=== PATIENT | male | born 1975 | race Caucasian/White ===

== ENCOUNTER 2018-07-16 07:09 | Day surgery (SDC) | payer MEDICAID ==
[~2018-07-16] VITALS: Ht 190.5 cm; Wt 136.7 kg
[2018-07-16] VITALS (8 sets, daily range): BP systolic 97–118; BP diastolic 53–72
[~2018-07-16 07:09] MED LIST: LIDOcaine 1% 30ml preserv. free vial SQ STA
[2018-07-16] MEDS ORDERED: normal saline 1000ml 1,000 ML IV PRN (07:25)
[2018-07-16] MEDS ORDERED: albumin (human) 25% 100 ML IV solution IV PRN (07:25)
[2018-07-16] MEDS ORDERED: LIDOcaine 1% 30ml preserv. free vial SQ PRN (07:25)
[2018-07-16] MEDS ORDERED: FURO40TA4 PO (07:32)
[2018-07-16] MEDS ORDERED: LOSA25TA96 PO (07:32)
[2018-07-16] MEDS ORDERED: IBUP-1986 PO (07:32)
[2018-07-16] MEDS ORDERED: LORA10TA7 PO (07:32)
[2018-07-16] MEDS ORDERED: ALPR-624 PO (07:32)
[2018-07-16] MEDS ORDERED: DULO-31 PO (07:32)
[2018-07-16] MEDS ORDERED: SPIR100T PO (07:32)
[2018-07-16] MEDS ORDERED: ARIP10TA15 PO (07:32)
[2018-07-16] MEDS ORDERED: METO50TA17 PO (07:32)
[2018-07-16] MEDS ORDERED: ESCI10TA54 PO (07:32)
[2018-07-16] MEDS ORDERED: METF500T PO (07:32)
[2018-07-16] MEDS ORDERED: LIDOcaine 1% 30ml preserv. free vial SQ ONE (08:30)
== END 2018-07-16 09:51 | disposition home or self-care (01) ==
LOC: SSTAY O 07:09
PROVIDERS: ATTEND Radiology Diagnostic Radiology
DX: K70.31 Alcoholic cirrhosis of liver with ascites (principal); I10 Essential (primary) hypertension; E78.5 Hyperlipidemia, unspecified; E11.9 Type 2 diabetes mellitus without complications; F32.9 Major depressive disorder, single episode, unspecified; F41.8 Other specified anxiety disorders; F10.21 Alcohol dependence, in remission; Z85.048 Personal history of other malignant neoplasm of rectum, rectosigmoid junction, and anus; Z87.891 Personal history of nicotine dependence; Z79.1 Long term (current) use of non-steroidal anti-inflammatories (NSAID); Z79.84 Long term (current) use of oral hypoglycemic drugs; Z79.899 Other long term (current) drug therapy; Z98.890 Other specified postprocedural states
CPT/HCPCS: 49083; J3490; J7030; P9047

== ENCOUNTER 2019-09-30 08:28 | Day surgery (SDC) | payer MEDICAID ==
[~2019-09-30] VITALS: Ht 190.5 cm; Wt 151.2 kg
[2019-09-30] VITALS (8 sets, daily range): BP systolic 110–145; BP diastolic 62–83
[~2019-09-30 08:28] MED LIST changes: +ALPR-624 PO; +ARIP10TA15 PO; +DULO-31 PO; +ESCI10TA61 PO; +FURO40TA4 PO; +IBUP-1986 PO; -LIDOcaine 1% 30ml preserv. free vial SQ STA; +LORA10TA7 PO; +LOSA25TA96 PO; +METF500T PO; +METO50TA17 PO; +SPIR100T PO
[2019-09-30] MEDS ORDERED: normal saline 1000ml 1,000 ML IV PRN (09:00)
[2019-09-30] MEDS ORDERED: albumin 25% 100mL bottle x 1 IV PRN (09:00)
[2019-09-30 11:36] LABS: GLUCOSE,BODY FLUID 105 MG/DL; LDH,BODY FLUID 61 U/L
[2019-09-30 13:16] LABS: LYMPHOCYTES,BODY FLUID 65 %; MONOCYTES,BODY FLUID 33 %; NEUTROPHILS,BODY FLUID 2 %
[2019-09-30 13:17] LABS: BF MESOTHELIAL CELLS FEW; BF RBC COUNT 235 /CU MM; BF WBC COUNT 240 /CU MM (0-1000); BFAPPEAR HAZY; BFCOLOR YELLOW; BFVOLUME 60 ML
[2019-10-01 10:14] LABS: TOTAL PROTEIN,BODY FLUID < 2.0 G/DL
== END 2019-09-30 11:30 | disposition home or self-care (01) ==
LOC: SSTAY O 08:28
PROVIDERS: ATTEND Radiology Diagnostic Radiology
DX: R18.8 Other ascites (principal)
CPT/HCPCS: 49083; 82945; 83615; 84157; 87070; 89051; C1729; J7030; P9047

== ENCOUNTER 2019-12-22 06:17 | Day surgery (SDC) | payer MEDICAID ==
[~2019-12-22] VITALS: Ht 190.5 cm; Wt 159.4 kg
[2019-12-22] VITALS (8 sets, daily range): BP systolic 132–152; BP diastolic 56–96
[~2019-12-22 06:17] MED LIST changes: -IBUP-1986 PO; -LORA10TA7 PO; -METO50TA17 PO; -SPIR100T PO
[2019-12-22] MEDS: albumin 25% 100mL bottle x 1 IV PRN ×2 (08:48→09:41)
== END 2019-12-22 11:15 | disposition home or self-care (01) ==
LOC: SSTAY O 06:17 → MED 3N 06:24 → SSTAY O 11:15
PROVIDERS: ATTEND Radiology Diagnostic Radiology
DX: K70.31 Alcoholic cirrhosis of liver with ascites (principal); I10 Essential (primary) hypertension; E11.9 Type 2 diabetes mellitus without complications; F41.8 Other specified anxiety disorders; Z79.899 Other long term (current) drug therapy; Z98.890 Other specified postprocedural states
CPT/HCPCS: 49083; C1729; P9047

== ENCOUNTER 2020-03-15 08:09 | Day surgery (SDC) | payer MEDICAID ==
[2020-03-15] VITALS (10 sets, daily range): BP systolic 129–155; BP diastolic 68–101
[~2020-03-15] VITALS: Ht 190.5 cm; Wt 133.1 kg
[2020-03-15] MEDS ORDERED: normal saline 1000ml 1,000 ML IV PRN (08:35)
[2020-03-15] MEDS: albumin 25% 100mL bottle x 1 IV PRN ×3 (10:32→11:28)
== END 2020-03-15 12:35 | disposition home or self-care (01) ==
LOC: SSTAY O 08:09
PROVIDERS: ATTEND Radiology Vascular & Interventional Radiology
DX: K70.31 Alcoholic cirrhosis of liver with ascites (principal); I10 Essential (primary) hypertension; E11.9 Type 2 diabetes mellitus without complications; F41.9 Anxiety disorder, unspecified; F32.9 Major depressive disorder, single episode, unspecified; Z98.890 Other specified postprocedural states; Z79.899 Other long term (current) drug therapy
CPT/HCPCS: 49083; P9047

== ENCOUNTER 2020-04-08 07:36 | Day surgery (SDC) | payer MEDICAID ==
[2020-04-08] VITALS (10 sets, daily range): BP systolic 103–150; BP diastolic 57–87
[~2020-04-08] VITALS: Ht 190.5 cm; Wt 138.2 kg
[~2020-04-08 07:36] MED LIST changes: -METF500T PO
[2020-04-08] MEDS ORDERED: normal saline 1000ml 1,000 ML IV PRN (07:55)
[2020-04-08] MEDS: albumin 25% 100mL bottle x 1 IV PRN ×2 (09:43→10:03)
== END 2020-04-08 11:38 | disposition home or self-care (01) ==
LOC: SSTAY O 07:36
PROVIDERS: ATTEND Radiology Vascular & Interventional Radiology
DX: K70.31 Alcoholic cirrhosis of liver with ascites (principal); E11.9 Type 2 diabetes mellitus without complications; I10 Essential (primary) hypertension; F32.9 Major depressive disorder, single episode, unspecified; F41.9 Anxiety disorder, unspecified; Z79.899 Other long term (current) drug therapy; Z98.890 Other specified postprocedural states
CPT/HCPCS: 49083; P9047

== ENCOUNTER 2020-05-06 06:53 | Day surgery (SDC) | payer MEDICAID ==
[~2020-05-06] VITALS: Ht 190.5 cm; Wt 139.3 kg
[2020-05-06] VITALS (14 sets, daily range): BP systolic 137–174; BP diastolic 62–101
[2020-05-06] MEDS ORDERED: normal saline 1000ml 1,000 ML IV PRN (07:15)
[2020-05-06] MEDS: albumin 25% 100mL bottle x 1 IV PRN ×4 (08:36→11:48)
== END 2020-05-06 12:30 | disposition home or self-care (01) ==
LOC: SSTAY O 06:53
PROVIDERS: ATTEND Radiology Vascular & Interventional Radiology
DX: K70.31 Alcoholic cirrhosis of liver with ascites (principal); I10 Essential (primary) hypertension; E11.9 Type 2 diabetes mellitus without complications; F41.9 Anxiety disorder, unspecified; F32.9 Major depressive disorder, single episode, unspecified; Z98.890 Other specified postprocedural states; Z79.899 Other long term (current) drug therapy
CPT/HCPCS: 49083; P9047

== ENCOUNTER 2020-05-31 06:45 | Day surgery (SDC) | payer MEDICAID ==
[2020-05-31] VITALS (12 sets, daily range): BP systolic 94–180; BP diastolic 61–102
[~2020-05-31] VITALS: Ht 190.5 cm; Wt 136.1 kg
[2020-05-31] MEDS ORDERED: normal saline 1000ml 1,000 ML IV PRN (07:05)
[2020-05-31] MEDS ORDERED: SPIR100T5 PO (07:09)
[2020-05-31] MEDS ORDERED: DOXY150T3 PO (07:09)
[2020-05-31] MEDS ORDERED: PANT40TA54 PO (07:09)
[2020-05-31] MEDS: albumin 25% 100mL bottle x 1 IV PRN ×2 (08:37→09:28)
== END 2020-05-31 11:00 | disposition home or self-care (01) ==
LOC: SSTAY O 06:45
PROVIDERS: ATTEND Radiology Vascular & Interventional Radiology
DX: K70.31 Alcoholic cirrhosis of liver with ascites (principal); E11.9 Type 2 diabetes mellitus without complications; F32.9 Major depressive disorder, single episode, unspecified; F41.9 Anxiety disorder, unspecified; I10 Essential (primary) hypertension; Z98.890 Other specified postprocedural states; Z79.899 Other long term (current) drug therapy
CPT/HCPCS: 49083; P9047

== ENCOUNTER 2020-06-11 06:26 | Day surgery (SDC) | payer MEDICAID ==
[~2020-06-11] VITALS: Ht 190.5 cm; Wt 130.1 kg
[2020-06-11] VITALS (13 sets, daily range): BP systolic 128–174; BP diastolic 47–106
[~2020-06-11 06:26] MED LIST changes: +DOXY150T3 PO; -LOSA25TA96 PO; +PANT40TA54 PO; +SPIR100T5 PO
[2020-06-11] MEDS ORDERED: FLU VACC QS2020-21(6MOS UP)/PF 60 MCG/0.5 ML SYRINGE IMVAC ONE (07:30)
[2020-06-11] MEDS: albumin 25% 100mL bottle x 1 IV PRN ×3 (08:50→09:50)
== END 2020-06-11 11:25 | disposition home or self-care (01) ==
LOC: SSTAY O 06:26
PROVIDERS: ATTEND Radiology Vascular & Interventional Radiology
DX: R18.8 Other ascites (principal); K70.31 Alcoholic cirrhosis of liver with ascites; Z23 Encounter for immunization; I10 Essential (primary) hypertension; E11.9 Type 2 diabetes mellitus without complications; F32.9 Major depressive disorder, single episode, unspecified; F41.9 Anxiety disorder, unspecified; Z98.890 Other specified postprocedural states; Z79.899 Other long term (current) drug therapy
CPT/HCPCS: 49083; 90471; P9047; Q2039

== ENCOUNTER 2020-07-16 05:58 | Day surgery (SDC) | payer MEDICAID ==
[~2020-07-16] VITALS: Ht 190.5 cm; Wt 122.4 kg
[2020-07-16] VITALS (11 sets, daily range): BP systolic 107–133; BP diastolic 61–89
[~2020-07-16 05:58] MED LIST changes: -DOXY150T3 PO
[2020-07-16] MEDS: albumin 25% 100mL bottle x 1 IV PRN ×2 (09:35→10:05)
== END 2020-07-16 12:08 | disposition home or self-care (01) ==
LOC: SSTAY O 05:58
PROVIDERS: ATTEND Radiology Vascular & Interventional Radiology
DX: K70.31 Alcoholic cirrhosis of liver with ascites (principal); E11.9 Type 2 diabetes mellitus without complications; I10 Essential (primary) hypertension; F32.9 Major depressive disorder, single episode, unspecified; F41.9 Anxiety disorder, unspecified; Z98.890 Other specified postprocedural states; Z79.899 Other long term (current) drug therapy
CPT/HCPCS: 49083; P9047

== ENCOUNTER 2020-08-03 09:21 | Day surgery (SDC) | payer MEDICAID ==
[2020-08-03] VITALS (10 sets, daily range): BP systolic 134–184; BP diastolic 78–115
[~2020-08-03] VITALS: Ht 190.5 cm; Wt 127.1 kg
[2020-08-03] MEDS: albumin 25% 100mL bottle x 1 IV PRN ×3 (10:16→11:39)
== END 2020-08-03 13:28 | disposition home or self-care (01) ==
LOC: SSTAY O 09:21
PROVIDERS: ATTEND Radiology Vascular & Interventional Radiology
DX: K70.31 Alcoholic cirrhosis of liver with ascites (principal); I10 Essential (primary) hypertension; E11.9 Type 2 diabetes mellitus without complications; F32.9 Major depressive disorder, single episode, unspecified; F41.9 Anxiety disorder, unspecified; F15.20 Other stimulant dependence, uncomplicated; F90.0 Attention-deficit hyperactivity disorder, predominantly inattentive type; Z98.890 Other specified postprocedural states; Z79.899 Other long term (current) drug therapy
CPT/HCPCS: 49083; P9047

== ENCOUNTER 2020-08-19 07:27 | Day surgery (SDC) | payer MEDICAID ==
[2020-08-19] VITALS (13 sets, daily range): BP systolic 117–157; BP diastolic 53–97
[~2020-08-19] VITALS: Ht 190.5 cm; Wt 132.4 kg
[2020-08-19] MEDS ORDERED: CEPH500C5 PO (08:17)
[2020-08-19] MEDS ORDERED: BACDS PO (08:17)
[2020-08-19] MEDS: albumin 25% 100mL bottle x 1 IV PRN ×3 (09:43→11:16)
== END 2020-08-19 12:00 | disposition home or self-care (01) ==
LOC: SSTAY O 07:27
PROVIDERS: ATTEND Radiology Diagnostic Radiology
DX: K70.31 Alcoholic cirrhosis of liver with ascites (principal); I10 Essential (primary) hypertension; E11.9 Type 2 diabetes mellitus without complications; F32.9 Major depressive disorder, single episode, unspecified; F41.9 Anxiety disorder, unspecified; Z98.890 Other specified postprocedural states; Z79.899 Other long term (current) drug therapy
CPT/HCPCS: 49083; P9047

== ENCOUNTER 2020-09-14 08:23 | Day surgery (SDC) | payer MEDICAID ==
[2020-09-14] VITALS (10 sets, daily range): BP systolic 117–185; BP diastolic 73–101
[~2020-09-14] VITALS: Ht 190.5 cm; Wt 130.5 kg
[~2020-09-14 08:23] MED LIST changes: +BACDS PO; +CEPH500C5 PO
[2020-09-14] MEDS ORDERED: ketorolac tromethamine 15mg/ml inj. IV ONE (09:10)
[2020-09-14] MEDS: albumin 25% 100mL bottle x 1 IV PRN ×3 (10:52→11:09)
== END 2020-09-14 12:47 | disposition home or self-care (01) ==
LOC: SSTAY O 08:23
PROVIDERS: ATTEND Radiology Diagnostic Radiology
DX: K70.31 Alcoholic cirrhosis of liver with ascites (principal); E11.9 Type 2 diabetes mellitus without complications; I10 Essential (primary) hypertension; F32.9 Major depressive disorder, single episode, unspecified; F41.9 Anxiety disorder, unspecified; Z87.19 Personal history of other diseases of the digestive system; Z98.890 Other specified postprocedural states; Z79.899 Other long term (current) drug therapy
CPT/HCPCS: 49083; J1885; P9047

== ENCOUNTER 2020-09-28 06:25 | Day surgery (SDC) | payer MEDICAID ==
[2020-09-28] VITALS (12 sets, daily range): BP systolic 132–167; BP diastolic 49–104
[~2020-09-28] VITALS: Ht 190.5 cm; Wt 141.6 kg
[~2020-09-28 06:25] MED LIST changes: -ESCI10TA61 PO; +ESCI10TA66 PO
[2020-09-28] MEDS ORDERED: ketorolac trometh. 30mg/ml inj. IV ONE (08:25)
[2020-09-28] MEDS: albumin 25% 100mL bottle x 1 IV PRN ×3 (08:37→10:23)
== END 2020-09-28 11:30 | disposition home or self-care (01) ==
LOC: SSTAY O 06:25
PROVIDERS: ATTEND Radiology Diagnostic Radiology
DX: K70.31 Alcoholic cirrhosis of liver with ascites (principal); E11.9 Type 2 diabetes mellitus without complications; I10 Essential (primary) hypertension; F32.9 Major depressive disorder, single episode, unspecified; F41.9 Anxiety disorder, unspecified; Z98.890 Other specified postprocedural states; Z79.899 Other long term (current) drug therapy
CPT/HCPCS: 49083; 76937; J1885; P9047

== ENCOUNTER 2020-10-08 08:22 | Day surgery (SDC) | payer MEDICAID ==
[~2020-10-08] VITALS: Ht 190.5 cm; Wt 135.9 kg
[2020-10-08] VITALS (18 sets, daily range): BP systolic 126–172; BP diastolic 68–109
[~2020-10-08 08:22] MED LIST changes: -BACDS PO; -CEPH500C5 PO
[2020-10-08] MEDS ORDERED: FERR325T32 PO (08:49)
[2020-10-08] MEDS: albumin 25% 100mL bottle x 1 IV PRN ×4 (09:23→12:05)
[2020-10-08 16:27] LABS: BASOPHILS % (AUTO) 0.8 % (0-1); EOSINOPHILS # (AUTO) 0.1 X10'3 (0-0.9); EOSINOPHILS % (AUTO) 2.5 % (0-6); LYMPHOCYTES # (AUTO) 0.6 X10'3 (1.1-4.8); LYMPHOCYTES % (AUTO) 14.3 % (21-51); MEAN CORPUSCULAR HGB CONC 31.3 g/dL (33.0-36.5); MEAN CORPUSCULAR VOLUME 76.6 FL (78-98); MEAN PLATELET VOLUME 7.2 FL (7.4-10.4); MONOCYTES # (AUTO) 0.7 X10'3 (0-0.9); MONOCYTES % (AUTO) 17.1 % (2-12); NEUTROPHILS # (AUTO) 2.7 X10'3 (1.8-7.7); NEUTROPHILS % (AUTO) 65.3 % (42-75); PLATELET COUNT 100 X10'3 (140-440); RED CELL DISTRIBUTION WIDTH 21.9 % (11.5-14.5); WHITE BLOOD COUNT 4.2 X10'3 (4.5-11.0)
[2020-10-08 16:32] LABS: HEMATOCRIT 20.7 % (42.0-52.0); HEMOGLOBIN 6.5 g/dl (14.0-17.9)
[2020-10-08 16:39] LABS: ALANINE AMINOTRANSFERASE 16 U/L (12-78); ALBUMIN 2.8 G/DL (3.4-5.0); ALBUMIN/GLOBULIN RATIO 0.7 (1.1-1.5); ALKALINE PHOSPHATASE 108 IU/L (46-116); ANION GAP 6 (8-16); ASPARTATE AMINO TRANSFERASE 27 U/L (10-37); BLOOD UREA NITROGEN 10 MG/DL (7-18); CALCIUM 8.2 MG/DL (8.5-10.1); CHLORIDE 108 MMOL/L (99-107); CREATININE 0.77 MG/DL (0.60-1.10); GLUCOSE 113 MG/DL (70-104); POTASSIUM 3.9 MMOL/L (3.5-5.1); SODIUM 141 MMOL/L (135-145); TOTAL CARBON DIOXIDE 27.3 MMOL/L (24-32); TOTAL PROTEIN 6.7 G/DL (6.4-8.2); eGFR > 90 ML/MIN
[2020-10-08 16:53] LABS: PLATELET ESTIMATE DECREASED
[2020-10-08 16:55] LABS: ANISOCYTOSIS 3+; HYPOCHROMASIA 2+; MICROCYTOSIS 1+; POLYCHROMASIA 1+
[2020-10-08 16:59] LABS: SPHEROCYTES FEW
[2020-10-08 17:03] LABS: ELLIPTOCYTES 1+; TEAR DROP CELLS FEW
== END 2020-10-08 16:30 | disposition home or self-care (01) ==
LOC: SSTAY O 08:22
PROVIDERS: ATTEND Radiology Diagnostic Radiology
DX: K70.31 Alcoholic cirrhosis of liver with ascites (principal); I10 Essential (primary) hypertension; E11.9 Type 2 diabetes mellitus without complications; F32.9 Major depressive disorder, single episode, unspecified; F41.9 Anxiety disorder, unspecified; Z98.890 Other specified postprocedural states; Z79.899 Other long term (current) drug therapy
CPT/HCPCS: 36415; 49083; 80053; 82103; 85025; 85610; P9047; 85008

== ENCOUNTER 2020-10-28 07:10 | Day surgery (SDC) | payer MEDICAID ==
[2020-10-28] VITALS (16 sets, daily range): BP systolic 128–176; BP diastolic 72–104
[~2020-10-28] VITALS: Ht 190.5 cm; Wt 144.1 kg
[~2020-10-28 07:10] MED LIST changes: +FERR325T32 PO
[2020-10-28] MEDS ORDERED: CITA20TA19 PO (08:02)
[2020-10-28] MEDS ORDERED: MELA5TAB12 PO (08:02)
[2020-10-28] MEDS ORDERED: MILK175C5 PO (08:02)
[2020-10-28] MEDS ORDERED: CARV3.12 PO (08:02)
[2020-10-28] MEDS ORDERED: DOCU-148 PO (08:02)
[2020-10-28] MEDS ORDERED: METF500T PO (08:02)
[2020-10-28] MEDS ORDERED: ketorolac trometh. 30mg/ml inj. IV ONE (09:05)
[2020-10-28] MEDS: albumin 25% 100mL bottle x 1 IV PRN ×5 (09:14→11:03)
== END 2020-10-28 13:35 | disposition home or self-care (01) ==
LOC: SSTAY O 07:10
PROVIDERS: ATTEND Radiology Diagnostic Radiology
DX: K70.31 Alcoholic cirrhosis of liver with ascites (principal); I10 Essential (primary) hypertension; E11.9 Type 2 diabetes mellitus without complications; F41.9 Anxiety disorder, unspecified; F32.9 Major depressive disorder, single episode, unspecified; G47.419 Narcolepsy without cataplexy; D64.9 Anemia, unspecified; Z87.19 Personal history of other diseases of the digestive system; Z98.890 Other specified postprocedural states; Z79.899 Other long term (current) drug therapy
CPT/HCPCS: 49083; J1885; P9047

== ENCOUNTER 2020-11-12 08:35 | Day surgery (SDC) | payer MEDICAID ==
[2020-11-12] VITALS (13 sets, daily range): BP systolic 114–147; BP diastolic 62–88
[~2020-11-12] VITALS: Ht 190.5 cm; Wt 133.2 kg
[~2020-11-12 08:35] MED LIST changes: +CARV3.12 PO; +CITA20TA19 PO; +DOCU-148 PO; -DULO-31 PO; -ESCI10TA66 PO; +MELA5TAB12 PO; +METF500T PO; +MILK175C5 PO; -PANT40TA54 PO
[2020-11-12] MEDS ORDERED: AZIT500T PO (09:07)
[2020-11-12] MEDS: albumin 25% 100mL bottle x 1 IV PRN ×3 (09:38→11:40)
== END 2020-11-12 13:14 | disposition home or self-care (01) ==
LOC: SSTAY O 08:35
PROVIDERS: ATTEND Radiology Diagnostic Radiology
DX: K70.31 Alcoholic cirrhosis of liver with ascites (principal); I10 Essential (primary) hypertension; E11.9 Type 2 diabetes mellitus without complications; F32.9 Major depressive disorder, single episode, unspecified; F41.9 Anxiety disorder, unspecified; D64.9 Anemia, unspecified; G47.419 Narcolepsy without cataplexy; Z79.899 Other long term (current) drug therapy; Z87.19 Personal history of other diseases of the digestive system; Z98.890 Other specified postprocedural states
CPT/HCPCS: 49083; P9047

== ENCOUNTER 2020-11-19 07:01 | Day surgery (SDC) | payer MEDICAID ==
[~2020-11-19] VITALS: Ht 190.5 cm; Wt 127.9 kg
[2020-11-19] VITALS (17 sets, daily range): BP systolic 123–174; BP diastolic 79–109
[~2020-11-19 07:01] MED LIST changes: +AZIT500T PO
[2020-11-19] MEDS: albumin 25% 100mL bottle x 1 IV PRN ×4 (08:51→11:41)
== END 2020-11-19 12:50 | disposition home or self-care (01) ==
LOC: SSTAY O 07:01
PROVIDERS: ATTEND Radiology Vascular & Interventional Radiology
DX: K70.31 Alcoholic cirrhosis of liver with ascites (principal); I10 Essential (primary) hypertension; E11.9 Type 2 diabetes mellitus without complications; F32.9 Major depressive disorder, single episode, unspecified; F41.9 Anxiety disorder, unspecified; D64.9 Anemia, unspecified; G47.419 Narcolepsy without cataplexy; Z98.890 Other specified postprocedural states; Z79.899 Other long term (current) drug therapy; Z79.84 Long term (current) use of oral hypoglycemic drugs
CPT/HCPCS: 49083; P9047

== ENCOUNTER 2020-12-03 06:33 | Day surgery (SDC) | payer MEDICAID ==
[~2020-12-03] VITALS: Ht 190.5 cm; Wt 138.8 kg
[2020-12-03] VITALS (10 sets, daily range): BP systolic 125–146; BP diastolic 70–105
[2020-12-03] MEDS: albumin 25% 100mL bottle x 1 IV PRN ×4 (08:43→11:54)
[2020-12-03] MEDS ORDERED: ketorolac trometh. 30mg/ml inj. IV ONE (11:00)
== END 2020-12-03 12:55 | disposition home or self-care (01) ==
LOC: SSTAY O 06:33
PROVIDERS: ATTEND Radiology Vascular & Interventional Radiology
DX: K70.31 Alcoholic cirrhosis of liver with ascites (principal); I10 Essential (primary) hypertension; E11.9 Type 2 diabetes mellitus without complications; F32.9 Major depressive disorder, single episode, unspecified; F41.9 Anxiety disorder, unspecified; G47.419 Narcolepsy without cataplexy; D64.9 Anemia, unspecified; Z98.890 Other specified postprocedural states; Z79.899 Other long term (current) drug therapy; Z79.84 Long term (current) use of oral hypoglycemic drugs
CPT/HCPCS: 49083; P9047

== ENCOUNTER 2020-12-10 07:14 | Day surgery (SDC) | payer MEDICAID ==
[~2020-12-10] VITALS: Ht 190.5 cm; Wt 127.6 kg
[2020-12-10] VITALS (13 sets, daily range): BP systolic 114–140; BP diastolic 62–88
[2020-12-10] MEDS: albumin 25% 100mL bottle x 1 IV PRN ×3 (08:48→11:04)
[2020-12-10] MEDS ORDERED: ketorolac tromethamine 15mg/ml inj. IV ONE (09:30)
== END 2020-12-10 11:58 | disposition home or self-care (01) ==
LOC: SSTAY O 07:14
PROVIDERS: ATTEND Radiology Vascular & Interventional Radiology
DX: K70.31 Alcoholic cirrhosis of liver with ascites (principal); I10 Essential (primary) hypertension; E11.9 Type 2 diabetes mellitus without complications; G47.419 Narcolepsy without cataplexy; F41.8 Other specified anxiety disorders; D64.9 Anemia, unspecified; Z98.890 Other specified postprocedural states; Z79.899 Other long term (current) drug therapy
CPT/HCPCS: 49083; J1885; P9047

== ENCOUNTER 2020-12-15 15:57 | Emergency (ER) | payer MEDICAID ==
[~2020-12-15] VITALS: Ht 190.5 cm; Wt 127.3 kg
[~2020-12-15 15:57] MED LIST changes: -AZIT500T PO
[2020-12-15 16:55] VITALS: BP 124/82
[2020-12-15] MEDS ORDERED: ketorolac tromethamine 15mg/ml inj. IM ONE (17:05)
[2020-12-15] MEDS ORDERED: orphenadrine citrate 60mg/2ml inj. IM ONE (17:05)
[2020-12-15] MEDS ORDERED: ORPH100T2 PO ×2 (17:23→17:25)
== END 2020-12-15 17:33 | disposition home or self-care (01) ==
LOC: ER 15:58
DX: M54.41 Lumbago with sciatica, right side (principal); G89.29 Other chronic pain; Z79.84 Long term (current) use of oral hypoglycemic drugs; Z79.899 Other long term (current) drug therapy
CPT/HCPCS: 96372; 99284; J1885; J2360

== ENCOUNTER 2020-12-21 07:23 | Day surgery (SDC) | payer MEDICAID ==
[2020-12-21] VITALS (8 sets, daily range): BP systolic 128–154; BP diastolic 82–93
[~2020-12-21] VITALS: Ht 190.5 cm; Wt 112.2 kg
[~2020-12-21 07:23] MED LIST changes: +ORPH100T2 PO
[2020-12-21] MEDS ORDERED: ketorolac trometh. 30mg/ml inj. IV ONE (09:00)
[2020-12-21] MEDS: albumin 25% 100mL bottle x 1 IV PRN ×3 (09:23→11:14)
[2020-12-21] MEDS ORDERED: orphenadrine citrate 60mg/2ml inj. IV SCH (20:00)
== END 2020-12-21 11:30 | disposition home or self-care (01) ==
LOC: SSTAY O 07:23
PROVIDERS: ATTEND Radiology Diagnostic Radiology
DX: K70.31 Alcoholic cirrhosis of liver with ascites (principal); I10 Essential (primary) hypertension; E11.9 Type 2 diabetes mellitus without complications; F32.9 Major depressive disorder, single episode, unspecified; F41.9 Anxiety disorder, unspecified; D64.9 Anemia, unspecified; G47.419 Narcolepsy without cataplexy; Z98.890 Other specified postprocedural states; Z79.899 Other long term (current) drug therapy
CPT/HCPCS: 49083; J1885; P9047

== ENCOUNTER 2021-01-10 20:50 | Emergency (ER) | payer MEDICAID ==
[~2021-01-10] VITALS: Ht 190.5 cm; Wt 113.6 kg
[2021-01-10 20:51] VITALS: BP 164/106
== END 2021-01-10 21:54 | disposition home or self-care (01) ==
LOC: ER 20:50
DX: M54.5 Low back pain (principal); G89.29 Other chronic pain; Z85.9 Personal history of malignant neoplasm, unspecified; Z79.899 Other long term (current) drug therapy
CPT/HCPCS: 99282

== ENCOUNTER 2021-01-11 06:48 | Day surgery (SDC) | payer MEDICAID ==
[~2021-01-11] VITALS: Ht 190.5 cm; Wt 115.2 kg
[2021-01-11] VITALS (9 sets, daily range): BP systolic 128–169; BP diastolic 80–99
[2021-01-11] MEDS: albumin 25% 100mL bottle x 1 IV PRN ×2 (08:41→09:17)
[2021-01-11] MEDS ORDERED: ketorolac trometh. 30mg/ml inj. IV ONE (09:05)
== END 2021-01-11 10:40 | disposition home or self-care (01) ==
LOC: SSTAY O 06:48
PROVIDERS: ATTEND Radiology Diagnostic Radiology
DX: K70.31 Alcoholic cirrhosis of liver with ascites (principal); I10 Essential (primary) hypertension; E11.9 Type 2 diabetes mellitus without complications; F32.9 Major depressive disorder, single episode, unspecified; F41.9 Anxiety disorder, unspecified; D64.9 Anemia, unspecified; G47.419 Narcolepsy without cataplexy; Z98.890 Other specified postprocedural states; Z79.899 Other long term (current) drug therapy; Z79.84 Long term (current) use of oral hypoglycemic drugs
CPT/HCPCS: 49083; J1885; P9047

== ENCOUNTER 2021-01-28 07:57 | Day surgery (SDC) | payer MEDICAID ==
[2021-01-28] VITALS (18 sets, daily range): BP systolic 134–182; BP diastolic 86–120
[~2021-01-28] VITALS: Ht 190.5 cm; Wt 111.9 kg
[~2021-01-28 07:57] MED LIST changes: -ORPH100T2 PO
[2021-01-28] MEDS ORDERED: ketorolac tromethamine 15mg/ml inj. IV ONE (09:30)
[2021-01-28] MEDS: albumin 25% 100mL bottle x 1 IV PRN ×3 (10:02→11:50)
== END 2021-01-28 13:55 | disposition home or self-care (01) ==
LOC: SSTAY O 07:57
PROVIDERS: ATTEND Radiology Vascular & Interventional Radiology
DX: K70.31 Alcoholic cirrhosis of liver with ascites (principal); I10 Essential (primary) hypertension; E11.9 Type 2 diabetes mellitus without complications; F32.9 Major depressive disorder, single episode, unspecified; F41.9 Anxiety disorder, unspecified; D64.9 Anemia, unspecified; G47.419 Narcolepsy without cataplexy; Z98.890 Other specified postprocedural states; Z79.899 Other long term (current) drug therapy
CPT/HCPCS: 49083; J1885; P9047

== ENCOUNTER 2021-02-08 08:39 | Day surgery (SDC) | payer MEDICAID ==
[2021-02-08] VITALS (12 sets, daily range): BP systolic 137–167; BP diastolic 66–100
[~2021-02-08] VITALS: Ht 190.5 cm; Wt 109.1 kg
[2021-02-08] MEDS ORDERED: normal saline 1000ml 1,000 ML IV PRN (10:20)
[2021-02-08] MEDS: albumin 25% 100mL bottle x 1 IV PRN ×3 (10:20→11:45)
== END 2021-02-08 12:32 | disposition home or self-care (01) ==
LOC: SSTAY O 08:39
PROVIDERS: ATTEND Radiology Diagnostic Radiology
DX: K70.31 Alcoholic cirrhosis of liver with ascites (principal); I10 Essential (primary) hypertension; E11.9 Type 2 diabetes mellitus without complications; F41.8 Other specified anxiety disorders; D64.9 Anemia, unspecified; Z98.890 Other specified postprocedural states; Z79.899 Other long term (current) drug therapy
CPT/HCPCS: 49083; P9047

== ENCOUNTER 2021-02-15 08:27 | Day surgery (SDC) | payer MEDICAID ==
[~2021-02-15] VITALS: Ht 190.5 cm; Wt 105.9 kg
[2021-02-15] VITALS (7 sets, daily range): BP systolic 126–145; BP diastolic 53–104
[2021-02-15] MEDS ORDERED: ketorolac tromethamine 15mg/ml inj. IV ONE (10:30)
[2021-02-15] MEDS: albumin 25% 100mL bottle x 1 IV PRN ×2 (10:58→11:20)
== END 2021-02-15 12:45 | disposition home or self-care (01) ==
LOC: SSTAY O 08:27
PROVIDERS: ATTEND Radiology Vascular & Interventional Radiology
DX: K70.31 Alcoholic cirrhosis of liver with ascites (principal); I10 Essential (primary) hypertension; E11.9 Type 2 diabetes mellitus without complications; F41.8 Other specified anxiety disorders; D64.9 Anemia, unspecified; Z98.890 Other specified postprocedural states; Z79.899 Other long term (current) drug therapy
CPT/HCPCS: 49083; J1885; P9047

== ENCOUNTER 2021-02-25 07:37 | Day surgery (SDC) | payer MEDICAID ==
[~2021-02-25] VITALS: Ht 190.5 cm; Wt 108.8 kg
[2021-02-25] VITALS (13 sets, daily range): BP systolic 142–180; BP diastolic 69–102
[2021-02-25] MEDS: albumin 25% 100mL bottle x 1 IV PRN ×3 (09:08→10:49)
[2021-02-25] MEDS ORDERED: ketorolac tromethamine 15mg/ml inj. IV ONE (09:15)
== END 2021-02-25 12:10 | disposition home or self-care (01) ==
LOC: SSTAY O 07:37
PROVIDERS: ATTEND Radiology Vascular & Interventional Radiology
DX: K70.31 Alcoholic cirrhosis of liver with ascites (principal); I10 Essential (primary) hypertension; E11.9 Type 2 diabetes mellitus without complications; F41.9 Anxiety disorder, unspecified; F32.9 Major depressive disorder, single episode, unspecified; G47.419 Narcolepsy without cataplexy; D64.9 Anemia, unspecified; Z98.890 Other specified postprocedural states
CPT/HCPCS: 49083; P9047

== ENCOUNTER 2021-03-05 20:47 | Emergency (ER) | payer MEDICAID ==
[~2021-03-05] VITALS: Ht 190.5 cm; Wt 125.0 kg
[2021-03-05 21:37] VITALS: BP 155/104
== END 2021-03-05 21:56 | disposition left against medical advice (07) ==
LOC: ER 20:47
DX: R06.02 Shortness of breath (principal); Z53.21 Procedure and treatment not carried out due to patient leaving prior to being seen by health care provider
CPT/HCPCS: 93005

== ENCOUNTER 2021-03-11 06:53 | Day surgery (SDC) | payer MEDICAID ==
[~2021-03-11] VITALS: Ht 190.5 cm; Wt 112.9 kg
[2021-03-11] VITALS (14 sets, daily range): BP systolic 132–171; BP diastolic 73–136
[2021-03-11] MEDS ORDERED: ketorolac tromethamine 15mg/ml inj. IV ONE (09:10)
[2021-03-11] MEDS: albumin 25% 100mL bottle x 1 IV PRN ×4 (09:16→11:39)
== END 2021-03-11 12:45 | disposition home or self-care (01) ==
LOC: SSTAY O 06:53
PROVIDERS: ATTEND Radiology Vascular & Interventional Radiology
DX: K70.31 Alcoholic cirrhosis of liver with ascites (principal); I10 Essential (primary) hypertension; E11.9 Type 2 diabetes mellitus without complications; F32.9 Major depressive disorder, single episode, unspecified; F41.9 Anxiety disorder, unspecified; G47.419 Narcolepsy without cataplexy; D64.9 Anemia, unspecified; Z98.890 Other specified postprocedural states; Z79.899 Other long term (current) drug therapy
CPT/HCPCS: 49083; J1885; P9047

== ENCOUNTER 2021-03-18 07:03 | Day surgery (SDC) | payer MEDICAID ==
[~2021-03-18] VITALS: Ht 190.5 cm; Wt 113.7 kg
[2021-03-18] VITALS (16 sets, daily range): BP systolic 109–164; BP diastolic 64–98
[~2021-03-18 07:03] MED LIST changes: -MILK175C5 PO
[2021-03-18] MEDS ORDERED: HYDROcodone/acetaminophen 10/325mg tab PO ONE (08:20)
[2021-03-18] MEDS: albumin 25% 100mL bottle x 1 IV PRN ×3 (08:23→09:49)
== END 2021-03-18 11:45 | disposition home or self-care (01) ==
LOC: SSTAY O 07:03
PROVIDERS: ATTEND Radiology Vascular & Interventional Radiology
DX: K70.31 Alcoholic cirrhosis of liver with ascites (principal); I10 Essential (primary) hypertension; E11.9 Type 2 diabetes mellitus without complications; F32.9 Major depressive disorder, single episode, unspecified; F41.9 Anxiety disorder, unspecified; G47.419 Narcolepsy without cataplexy; D64.9 Anemia, unspecified; Z98.890 Other specified postprocedural states; Z79.84 Long term (current) use of oral hypoglycemic drugs; Z79.899 Other long term (current) drug therapy
CPT/HCPCS: 49083; 82948; P9047

== ENCOUNTER 2021-03-25 08:48 | Day surgery (SDC) | payer MEDICAID ==
[2021-03-25] VITALS (14 sets, daily range): BP systolic 118–155; BP diastolic 67–103
[~2021-03-25] VITALS: Ht 190.5 cm; Wt 104.4 kg
[2021-03-25] MEDS: albumin 25% 100mL bottle x 1 IV PRN ×3 (11:10→13:17)
[2021-03-25] MEDS ORDERED: HYDROcodone/acetaminophen 5mg/325mg tablet PO ONE (11:55)
== END 2021-03-25 14:33 | disposition home or self-care (01) ==
LOC: SSTAY O 08:48
PROVIDERS: ATTEND Radiology Diagnostic Radiology
DX: K70.31 Alcoholic cirrhosis of liver with ascites (principal); F41.9 Anxiety disorder, unspecified; F32.9 Major depressive disorder, single episode, unspecified; I10 Essential (primary) hypertension; E11.9 Type 2 diabetes mellitus without complications; G47.419 Narcolepsy without cataplexy; D64.9 Anemia, unspecified; Z98.890 Other specified postprocedural states; Z79.899 Other long term (current) drug therapy; Z79.84 Long term (current) use of oral hypoglycemic drugs
CPT/HCPCS: 49083; P9047

== ENCOUNTER 2021-04-08 07:21 | Day surgery (SDC) | payer MEDICAID ==
[2021-04-08] VITALS (14 sets, daily range): BP systolic 105–138; BP diastolic 61–86
[~2021-04-08] VITALS: Ht 190.5 cm; Wt 104.0 kg
[2021-04-08] MEDS ORDERED: normal saline 1000ml 1,000 ML IV PRN (07:40)
[2021-04-08] MEDS ORDERED: SULF1TAB49 PO (07:52)
[2021-04-08] MEDS ORDERED: LACT10SO57 PO (07:52)
[2021-04-08] MEDS ORDERED: PANT40TA54 PO (07:52)
[2021-04-08] MEDS: albumin 25% 100mL bottle x 1 IV PRN ×3 (08:38→09:34)
[2021-04-08] MEDS ORDERED: ketorolac tromethamine 15mg/ml inj. IV ONE (10:15)
== END 2021-04-08 11:50 | disposition home or self-care (01) ==
LOC: SSTAY O 07:21
PROVIDERS: ATTEND Radiology Vascular & Interventional Radiology
DX: K70.31 Alcoholic cirrhosis of liver with ascites (principal); I10 Essential (primary) hypertension; E11.9 Type 2 diabetes mellitus without complications; F41.9 Anxiety disorder, unspecified; F32.9 Major depressive disorder, single episode, unspecified; G47.419 Narcolepsy without cataplexy; D64.9 Anemia, unspecified; Z98.890 Other specified postprocedural states
CPT/HCPCS: 49083; J1885; P9047

== ENCOUNTER 2021-04-15 09:28 | Day surgery (SDC) | payer MEDICAID ==
[2021-04-15] VITALS (11 sets, daily range): BP systolic 118–140; BP diastolic 66–100
[~2021-04-15] VITALS: Ht 190.5 cm; Wt 94.9 kg
[~2021-04-15 09:28] MED LIST changes: -ARIP10TA15 PO; +LACT10SO57 PO; +PANT40TA54 PO; +SULF1TAB49 PO
[2021-04-15] MEDS: albumin 25% 100mL bottle x 1 IV PRN ×3 (10:47→12:37)
[2021-04-15] MEDS ORDERED: ARIP10TA57 PO (10:51)
== END 2021-04-15 14:15 | disposition home or self-care (01) ==
LOC: SSTAY O 09:28
PROVIDERS: ATTEND Radiology Diagnostic Radiology
DX: K70.31 Alcoholic cirrhosis of liver with ascites (principal); I10 Essential (primary) hypertension; E11.9 Type 2 diabetes mellitus without complications; F41.8 Other specified anxiety disorders; D64.9 Anemia, unspecified; Z98.890 Other specified postprocedural states; Z79.899 Other long term (current) drug therapy; Z79.01 Long term (current) use of anticoagulants
CPT/HCPCS: 49083; P9047